=== PATIENT | female | born 1985 | race Caucasian/White ===

== ENCOUNTER 2020-10-04 09:59 | Emergency (ER) | payer OTHER ==
[~2020-10-04 09:59] MED LIST: LODINE CAP 300300 MG PO
[2020-10-04 11:02] LABS: HEMOGLOBIN 13.1 gm/dl (12.3-15.3); RED BLOOD COUNT 4.09 M/UL (4.00-5.10); WHITE BLOOD COUNT 5.8 K/UL (4.5-11.0)
[2020-10-04 11:21] LABS: BUN/CREATININE RATIO 29 (0-10)
[2020-10-04] MEDS ORDERED: ZOFRAN4 MG PO (13:52)
[2020-10-04] MEDS ORDERED: MEDI-MECLIZINE25 MG PO (13:52)
== END 2020-10-04 14:00 | disposition home or self-care (01) ==
LOC: ER1 09:59
PROVIDERS: Physician Assistant
DX: R42 Dizziness and giddiness (principal); R51.9 Headache, unspecified; R11.0 Nausea; F17.200 Nicotine dependence, unspecified, uncomplicated
CPT/HCPCS: 36415; 70450; 80053; 85025; 96374; 96375; 99284; J1885; J2405; J7030

== ENCOUNTER → 2021-03-13 | Outpatient (CLI) | payer OTHER ==
[~2021-03-13] MED LIST changes: +MEDI-MECLIZINE25 MG PO; +MUCINEX1200 MG PO; +PROAIR HFA8.5 GM INH; +ZOFRAN4 MG PO
== END ==
LOC: KOH-I 10:59
DX: M54.2 Cervicalgia (principal); M54.5 Low back pain; M54.17 Radiculopathy, lumbosacral region; M47.812 Spondylosis without myelopathy or radiculopathy, cervical region
CPT/HCPCS: 72050; 72110

== ENCOUNTER 2021-03-26 12:47 | Emergency (ER) | payer OTHER ==
[~2021-03-26 12:47] MED LIST changes: -MUCINEX1200 MG PO; -PROAIR HFA8.5 GM INH
[2021-03-26] MEDS ORDERED: MUCINEX1200 MG PO (14:41)
[2021-03-26] MEDS ORDERED: PROAIR HFA8.5 GM INH (14:41)
== END 2021-03-26 14:46 | disposition home or self-care (01) ==
LOC: ER1 12:47
DX: U07.1 COVID-19 (principal); J12.82 Pneumonia due to coronavirus disease 2019
CPT/HCPCS: 99284; U0002

== ENCOUNTER → 2021-10-31 | Outpatient (CLI) | payer OTHER ==
[~2021-10-31] MED LIST changes: +MUCINEX1200 MG PO; +PROAIR HFA8.5 GM INH
== END ==
LOC: MRI 08:30
DX: R51.9 Headache, unspecified (principal); R42 Dizziness and giddiness; H93.12 Tinnitus, left ear; J34.89 Other specified disorders of nose and nasal sinuses
CPT/HCPCS: 70553; A9577